=== PATIENT | male | born 1970 | race Two or more races ===

== ENCOUNTER → 2022-04-19 08:00 | Outpatient (CLI) | payer OTHER ==
[~2022-04-19] VITALS: Ht 175.3 cm; Wt 108.4 kg
[~2022-04-19 08:00] MED LIST: GLIMEPIRIDE2 MG; METFORMIN HCL850 M1 PO
== END | disposition home or self-care (01) ==
LOC: ADM 07:15 → LAB 08:00 → CIR.AMB 04-24 07:00 → EDSTATUS 04-24 07:15 → CIR.AMB 04-24 07:15
PROVIDERS: ATTEND Urology
DX: N47.1 Phimosis (principal)